=== PATIENT | male | born 1955 | race Native Hawaiian/Other Pacific Islander ===

== ENCOUNTER 2018-12-22 17:28 | Outpatient (CLI) | payer OTHER ==
[2018-12-22 18:01] LABS: PLATELET COUNT 328 K/uL (142-355)
== END 2018-12-22 23:39 | disposition home or self-care (01) ==
LOC: LAB 17:28
PROVIDERS: Internal Medicine
DX: R53.82 Chronic fatigue, unspecified (principal); Z12.5 Encounter for screening for malignant neoplasm of prostate; E89.0 Postprocedural hypothyroidism; E55.9 Vitamin D deficiency, unspecified; E78.00 Pure hypercholesterolemia, unspecified
CPT/HCPCS: 80053; 80061; 82306; 82330; 82607; 84153; 84439; 84443; 84481; 85027

== ENCOUNTER 2018-12-28 10:40 | Outpatient (CLI) | payer OTHER | END 2018-12-28 22:17 | disposition home or self-care (01) | LOC: LABW 10:40 | DX: R74.8 Abnormal levels of other serum enzymes (principal); R73.9 Hyperglycemia, unspecified; N53.8 Other male sexual dysfunction; R53.82 Chronic fatigue, unspecified | CPT/HCPCS: 36415; 80074; 83036; 84402; 84403 ==

== ENCOUNTER 2019-04-24 13:50 | Outpatient (CLI) | payer OTHER | END 2019-04-24 19:30 | disposition home or self-care (01) | LOC: LAB 13:50 | DX: E03.8 Other specified hypothyroidism (principal) | CPT/HCPCS: 84439; 84443 ==

== ENCOUNTER 2019-06-27 14:05 | Outpatient (CLI) | payer OTHER ==
[2019-06-27 14:35] LABS: PLATELET COUNT 375 K/uL (142-355)
[2019-06-27 14:57] LABS: POTASSIUM 4.2 mmol/L (3.6-5.2)
== END 2019-06-27 20:12 | disposition home or self-care (01) ==
LOC: LAB 14:05
PROVIDERS: Nurse Practitioner Family
DX: E78.00 Pure hypercholesterolemia, unspecified (principal); E58 Dietary calcium deficiency; E11.9 Type 2 diabetes mellitus without complications; R74.8 Abnormal levels of other serum enzymes; R53.82 Chronic fatigue, unspecified; E55.9 Vitamin D deficiency, unspecified; E89.0 Postprocedural hypothyroidism; E53.8 Deficiency of other specified B group vitamins
CPT/HCPCS: 80053; 80061; 82306; 83036; 84439; 84443; 85027

== ENCOUNTER 2019-12-19 09:24 | Outpatient (CLI) | payer OTHER | END 2019-12-19 19:06 | disposition home or self-care (01) | LOC: CT 09:24 | DX: E89.0 Postprocedural hypothyroidism (principal); R53.82 Chronic fatigue, unspecified ==

== ENCOUNTER 2020-03-04 14:23 | Outpatient (CLI) | payer OTHER | END 2020-03-05 01:08 | disposition home or self-care (01) | LOC: LAB 14:23 | PROVIDERS: Nurse Practitioner Family | DX: E11.9 Type 2 diabetes mellitus without complications (principal); E78.49 Other hyperlipidemia | CPT/HCPCS: 80061; 83036 ==

== ENCOUNTER 2020-03-15 06:42 | Observation (INO) | payer OTHER ==
[~2020-03-15] VITALS: Ht 170.2 cm; Wt 101.8 kg
[2020-03-15] VITALS (9 sets, daily range): BP systolic 94–177; BP diastolic 55–99; TEMP 97.8–98.5; Ht 170.2 cm; Wt 101.8 kg
[2020-03-15 07:20] LABS: PLATELET COUNT 334 K/uL (142-355)
[2020-03-15 07:30] LABS: POTASSIUM 3.9 mmol/L (3.6-5.2); SODIUM 136 mmol/L (136-145)
[2020-03-15 07:37] LABS: PARTIAL THROMBOPLASTIN TIME 23.7 SECONDS (24.5-33.6)
[2020-03-15] MEDS ORDERED: CALCIUM CITRATE1 TAB PO (11:13)
[2020-03-15] MEDS ORDERED: TRICOR145 M1 PO (11:14)
[2020-03-15] MEDS ORDERED: BENAZEPRIL5 MG PO (11:15)
[2020-03-15] MEDS ORDERED: GRALISE600 MG PO (11:16)
[2020-03-15] MEDS ORDERED: BAYER ASPIRIN E81 MG PO (11:17)
[2020-03-15] MEDS ORDERED: NEXIUM40 M1 PO (14:19)
[2020-03-15] MEDS ORDERED: LEVO0.1519 PO (14:20)
[2020-03-15] MEDS ORDERED: TIROSINT25 MCG PO (14:22)
[2020-03-15] MEDS ORDERED: CALCITRIOL0.5 MCG PO (14:25)
[2020-03-16 04:13] VITALS: BP 91/47; TEMP 98.5
[2020-03-16 08:00] VITALS: BP 108/61; TEMP 98.7
[2020-03-16] MEDS ORDERED: PROZAC10 MG PO (11:59)
[2020-03-16 12:00] VITALS: BP 123/62; TEMP 98.3
[2020-03-16] MEDS ORDERED: LORA0.5T17 PO (12:00)
== END 2020-03-16 13:48 | disposition home or self-care (01) ==
LOC: ED 06:42 → MED/SURG 08:00
PROVIDERS: ADMIT Hospitalist
DX: R07.89 Other chest pain (principal); Z11.59 Encounter for screening for other viral diseases; I10 Essential (primary) hypertension; Z86.73 Personal history of transient ischemic attack (TIA), and cerebral infarction without residual deficits; K21.9 Gastro-esophageal reflux disease without esophagitis; I25.2 Old myocardial infarction; E03.8 Other specified hypothyroidism; R06.09 Other forms of dyspnea; E83.51 Hypocalcemia; E78.49 Other hyperlipidemia; G62.89 Other specified polyneuropathies
CPT/HCPCS: 36600; 80053; 82550; 82805; 83880; 84439; 84443; 84484; 85027; 85610; 85730; 87635; 93005; 94760; 96374; 96375; 99220; 99284; G0378; J1650; J1940; J2405; U0003

== ENCOUNTER 2020-04-04 08:42 | Outpatient (CLI) | payer OTHER ==
[~2020-04-04 08:42] MED LIST: BAYER ASPIRIN E81 MG PO; BENAZEPRIL5 MG PO; CALCITRIOL0.5 MCG PO; CALCIUM CITRATE1 TAB PO; GRALISE600 MG PO; LEVO0.1519 PO; LORA0.5T17 PO; NEXIUM40 M1 PO; PROZAC10 MG PO; TIROSINT25 MCG PO; TRICOR145 M1 PO
== END 2020-04-04 20:18 | disposition home or self-care (01) ==
LOC: RESP 08:42
DX: R06.02 Shortness of breath (principal); R07.89 Other chest pain

== ENCOUNTER 2020-05-28 14:02 | Outpatient (CLI) | payer OTHER ==
[2020-05-28 14:25] LABS: PLATELET COUNT 325 K/uL (142-355)
[2020-05-28 14:50] LABS: POTASSIUM 4.5 mmol/L (3.6-5.2)
== END 2020-05-28 23:01 | disposition home or self-care (01) ==
LOC: LAB 14:02
PROVIDERS: ATTEND Nurse Practitioner Family
DX: E11.9 Type 2 diabetes mellitus without complications (principal); R22.1 Localized swelling, mass and lump, neck; E58 Dietary calcium deficiency; E78.49 Other hyperlipidemia; E55.9 Vitamin D deficiency, unspecified; I10 Essential (primary) hypertension; E53.8 Deficiency of other specified B group vitamins
CPT/HCPCS: 80053; 80061; 82306; 82607; 83036; 84439; 84443; 85027

== ENCOUNTER 2020-06-24 07:59 | Outpatient (CLI) | payer OTHER | END 2020-06-24 18:55 | disposition home or self-care (01) | LOC: CT 07:59 | PROVIDERS: ATTEND Otolaryngology | DX: R22.1 Localized swelling, mass and lump, neck (principal) | CPT/HCPCS: 36415; 82565; 84520; Q9963 ==